=== PATIENT | female | born 1990 | race Asian ===

== ENCOUNTER 2025-02-08 07:02 | Inpatient (IN) | payer BC, SELFPAY ==
[2025-02-08 07:31] VITALS: BP 137/86; BMI 26.5
[2025-02-08] MEDS: TYLENOL 1000 MG PO (07:54)
[2025-02-08] MEDS: BICITRA 30 ML PO (07:54)
[2025-02-08] MEDS: ANCEF 10 IV (07:54)
[2025-02-08 07:59] LABS: Hematocrit 31.3 % (37.0-47.0); Hemoglobin 10.3 g/dL (12.0-16.0); Mean Corp Hgb Conc. 32.9 g/dL (33.0-37.0); Mean Corpuscular Hgb 26.5 pg (27.0-31.0); Mean Corpuscular Volume 80.5 fL (81.0-99.0); Mean Platelet Volume 9.9 fL (7.4-10.4); Platelet Count 427 10^3/uL (130-400); Red Blood Cell Count 3.89 10^6/uL (4.20-5.40); Red Cell Dist. Width 13.2 % (11.5-14.5); White Blood Cell Count 9.7 10^3/uL (4.8-10.8)
[2025-02-08] MEDS: PITOCIN 30 UNITS/NSS 500 ML IV (09:45)
[2025-02-08] MEDS: PRENATAL PLUS PO (10:18)
[2025-02-08] MEDS: TORADOL 15 MG IV ×3 (10:19→22:01)
[2025-02-08] MEDS: DILAUDID 1 MG IV ×3 (11:17→20:20)
[2025-02-08] MEDS: FLUSH (NSS) 1 FLUSH IV (20:21)
[2025-02-08] MEDS: FLUSH (NSS) 2 FLUSH IV (22:04)
[2025-02-09] MEDS: DILAUDID 1 MG IV ×2 (00:14→05:31)
[2025-02-09] MEDS: FLUSH (NSS) 2 FLUSH IV ×3 (00:15→05:33)
[2025-02-09] MEDS: TORADOL 15 MG IV (03:41)
[2025-02-09 04:47] LABS: Hematocrit 28.6 % (37.0-47.0); Hemoglobin 9.6 g/dL (12.0-16.0); Mean Corp Hgb Conc. 33.6 g/dL (33.0-37.0); Mean Corpuscular Hgb 26.7 pg (27.0-31.0); Mean Corpuscular Volume 79.4 fL (81.0-99.0); Mean Platelet Volume 9.6 fL (7.4-10.4); Platelet Count 379 10^3/uL (130-400); Red Cell Dist. Width 12.9 % (11.5-14.5); White Blood Cell Count 9.4 10^3/uL (4.8-10.8)
[2025-02-09] MEDS: MYLICON 80 MG PO (05:45)
[2025-02-09] MEDS: PRENATAL PLUS 1 TABLET PO (08:11)
[2025-02-09] MEDS: FEOSOL 325 MG PO (08:11)
[2025-02-09] MEDS: PERCOCET 5/325 2 TABLET PO ×4 (08:43→21:15)
--- NOTE | 2025-02-09 08:51 | W.PN.ANS.POP ---
Anesthesia Post Operative
- Anesthesia Post Op Note
Vital Signs Stable-See Nursing Note: Yes
Airway Patent: Yes
Adequate Pain Control: Yes
Change in Mental Status: No
Current Postoperative Nausea & Vomiting: No
Anesthesia Complications: No
General Anesthetic Recall: No
Unplanned Admission: No
Post Op Hydration Adequate: Yes
[2025-02-09] MEDS: MOTRIN 600 MG PO (19:50)
[2025-02-10] MEDS: PERCOCET 5/325 2 TABLET PO ×5 (01:49→20:08)
[2025-02-10] MEDS: MOTRIN 600 MG PO ×3 (01:50→15:48)
[2025-02-10] MEDS: FEOSOL 325 MG PO (08:23)
[2025-02-10] MEDS: PRENATAL PLUS 1 TABLET PO (08:23)
[2025-02-10] MEDS: MYLICON 80 MG PO (14:01)
[2025-02-11] MEDS: PERCOCET 5/325 2 TABLET PO ×4 (00:26→13:49)
[2025-02-11] MEDS: MOTRIN 600 MG PO ×2 (00:27→13:53)
[2025-02-11] MEDS: FEOSOL 325 MG PO (08:42)
[2025-02-11] MEDS: PRENATAL PLUS 1 TABLET PO (08:42)
[2025-02-11] MEDS: SENOKOT-S 1 TABLET PO (08:42)
[2025-02-11] MEDS: MYLICON 80 MG PO (08:43)
[2025-02-11 11:14] LABS: Syphilis/T. pallidum Ab Reflex Negative (Negative)
--- NOTE | 2025-02-11 13:39 | W.DS.TRANS ---
DC Summary - Injection Press Operator
-
Discharge Instructions:
Discharge Diagnosis/Procedures delivery
Instructions:
Stand-Alone Forms: LDRP Delivery
Changes to Home Medications: No
Discharge Medications:
DC Medications w/original date entered in [facility]
oxycodone 5 mg tablet 5 mg PO Q6H PRN pain 02/08/25
prenat.vits,debbie,upu-katj-rfgzp 1 tab PO 1XD 02/08/25
acetaminophen 325 mg tablet 650 mg (2 x 325 mg) PO Q4HPRN PRN mild pain #0 tabs 02/11/25
ferrous sulfate 325 mg (65 mg iron) tablet (FeroSul) 325 mg PO DAILY #0 tabs 02/11/25
ibuprofen 600 mg tablet 600 mg PO Q6HPRN PRN cramps #30 tabs 02/11/25
sennosides 8.6 mg-docusate sodium 50 mg tablet 1 tab PO DAILYPRN PRN constipation #0 tabs 02/11/25
simethicone 80 mg chewable tablet 80 mg PO TIDPRN PRN flatulence #0 tabs 02/11/25
Home Medication Changes
Pending Results: Yes
Additional Pending Results:
placenta pathology
Total time spent discharging patient (in min): 20
== END 2025-02-11 19:14 | disposition home or self-care (01) | DRG 788 ==
LOC: LDRP 07:02
PROVIDERS: ADMITTING PHYSICIAN Obstetrics & Gynecology
PROC: 10D00Z1 Extraction of Products of Conception, Low, Open Approach (ICD-10-PCS; 2025-02-08)
DX: O34.211 Maternal care for low transverse scar from previous cesarean delivery (principal); N85.8 Other specified noninflammatory disorders of uterus; O69.81X0 Labor and delivery complicated by cord around neck, without compression, not applicable or unspecified; O48.0 Post-term pregnancy; Z3A.40 40 weeks gestation of pregnancy; O99.824 Streptococcus B carrier state complicating childbirth; Z37.0 Single live birth; D50.0 Iron deficiency anemia secondary to blood loss (chronic); O99.02 Anemia complicating childbirth; K58.9 Irritable bowel syndrome, unspecified; O99.62 Diseases of the digestive system complicating childbirth; G89.29 Other chronic pain; M54.9 Dorsalgia, unspecified; O99.892 Other specified diseases and conditions complicating childbirth; F11.90 Opioid use, unspecified, uncomplicated; Z79.899 Other long term (current) drug therapy
CPT/HCPCS: 88307; 85027; 86780; 86850; 86900; 86901; 87086